=== PATIENT | female | born 1950 | race Caucasian/White ===

== ENCOUNTER 2017-09-01 12:01 | Inpatient (IN) ==
[2017-09-01 12:46] VITALS: BMI 32.8
[2017-09-01] MEDS ORDERED: INFLUENZA VAC High Dose 2017-18 (Fluzone HD*) (>=65yo) 0.5ml IM ONE (12:52)
[2017-09-01] MEDS ORDERED: PNEUMOCOCCAL 13 VACCINE 0.5ml INJECTION IM ONE (12:52)
[2017-09-01] MEDS ORDERED: Oxycodone *IR* 5 MG TABLET PO PRN (13:08)
[2017-09-01] MEDS: ACETAMINOPHEN 325 MG TABLET PO SCH ×3 (13:23→21:03)
[2017-09-01] MEDS ORDERED: ENOXAPARIN 40 MG/0.4 ML INJECTION SQ SCH (14:00)
[2017-09-01] MEDS: D5-1/2NS with KCL 20mEq 1,000 ML IV SCH ×2 (14:28→21:01)
--- NOTE | 2017-09-01 15:24 | History and Physical ---
CHIEF COMPLAINT Right hip pain. HPI The patient is a 67-year-old female who was brought to the clinic today as a new patient by her . She fell about two days on 08/30/2017. She is having difficulty walking and even standing up with the use of a walker and also a wheelchair at home. Her pain is getting worse. That's the reason why she came to the office today. X-ray done at the office did show a fracture of the head of the right femur. The patient had difficulty with moving around. We were able to do only one view of the x-ray. For this reason, I discussed the patient with Dr. Womack. He was willing to see the patient for surgical consultation. PAST MEDICAL HISTORY Kidney stone. PAST SURGICAL HISTORY None. FAMILY HISTORY Polycythemia. SOCIAL HISTORY The patient is with children. Current Occupation Status: Employed. Smoking Status: Nonsmoker. CURRENT MEDICATION None. ALLERGIES No known medication allergy. REVIEW OF SYSTEMS Denies any chest pain. No orthopnea. No PND. No leg swelling. Denies any hematochezia. No melena. Denies any TIA or CVA symptoms. PHYSICAL EXAMINATION GENERAL: Patient looks uncomfortable due to pain. NECK: Supple. LUNGS: Clear. CARDIOVASCULAR: Regular rate and rhythm. ABDOMEN: Soft. EXTREMITIES: Patient is tender on palpation of the right hip. NEURO EXAM: Grossly intact. No focal neurological deficit. CODE STATUS: Patient is Full Code. ASSESSMENT 1. X-ray did show closed posttraumatic subcapital right femoral neck fracture. This was mildly displaced as well. 2. Right hip pain due to #1 above. PLAN 1. Admit patient to [facility] under the care of Dr. Santana Davalos. 2. Consult to Dr. Womack. He is already aware of the consultation and he will see the patient later. 3. Do lab including CBC, CMP, UA. 4. The patient received Demerol 75 mg IM at the office. She will be started on pain medication and some IV fluid. 5. I will be checking out to the hospitalist at 4 p.m. today. I will return back on 09/05/2017 at 6:00 a.m. Until then, patient care will be managed by the hospitalists. Dr. Womack has been consulted. [facility]ENTER[facility]
[2017-09-01] MEDS ORDERED: PNEUMOCOCCAL VAC ADMIN CHARGE INJ ONE (17:35)
[2017-09-01] MEDS ORDERED: INFLUENZA VAC. INJ. ADMIN CHARGE INJ ONE (17:37)
[2017-09-02] MEDS: MORPHINE SULFATE 10 MG SYRINGE IV PRN ×2 (02:55→06:35)
[2017-09-02] MEDS: D5-1/2NS with KCL 20mEq 1,000 ML IV SCH ×2 (03:56→18:31)
--- NOTE | 2017-09-02 06:38 | Orthopedic Consult Note ---
Orthopedic Consultation HPI - Consultation Info Consult Date: 09/02/17 Attending Physician: Santana Davalos MD Consult Reason: fracture - History of Present Illness Miranda is a 67-year-old female who was taken to Dr Davalos's clinic on 09/01/17 after suffering a fall two days earlier on 08/30/2017. She fell from a standing height onto concrete and injured her right hip and right UE. She was having difficulty walking and the pain was worsening which is why she presented to his clinic for evaluation. X-ray done in the office showed a subcapital fracture of the right hip but no osseous injury to the upper extremity. Dr Womack was consulted and pt was sent to [facility] for inpatient placement with anticipation of surgery on 09/02/17. Review of Systems - Constitutional Constitutional: Absent: chills, fever(s), headache(s), night sweats, dizziness - EENT Ears, nose, mouth, throat: Absent: headaches, lightheadedness - Cardiovascular Cardiovascular: Absent: chest pain, palpitations, syncope - Respiratory Respiratory: Absent: cough, dyspnea - Gastrointestinal Gastrointestinal: Absent: change in bowel habits, diarrhea, vomiting - Genitourinary Genitourinary General: Absent: chills, fever(s) - Musculoskeletal Musculoskeletal: Present: as per HPI, other (Right elbow abrasion and some shoulder stiffness. ) - Integumentary/Breasts Integumentary: Absent: lesions, rash - Neurological Neurological: Absent: dizziness, paresthesias, tingling, paralysis/paresis - Psychiatric Psychiatric: Absent: depression - Hematologic/Lymphatic Hematologic/Lymphatic: Absent: easy bleeding, easy bruising - Allergic/Immunologic Allergic/Immunologic: Absent: hives [facility] Patient Stated Medical History Hx Kidney Stones Yes Clinic Medical History (Last Reviewed 09/02/17 @ 05:03 by Stephanie Clark RN) Kidney stones (Chronic Medical) Surgical History: appendix 10 years ago Family History: Family History (Last Updated 09/01/17 @ 10:36 by LIDIA Lopez) Mother Polycythemia - Social History Smoking status: Never smoker Medications Home Medications Medication Instructions Recorded Confirmed Type No known Home medications [No home 09/01/17 09/01/17 History meds] Allergies Allergy/AdvReac Type Severity Reaction Status Date / Time No Known Allergies Allergy Verified 09/01/17 13:18 Orthopedic Exam Vital signs: Temperature 98.1 F 09/01/17 23:00 Pulse Rate 82 09/01/17 23:00 Respiratory Rate 16 09/01/17 23:00 Blood Pressure 162/85 H 09/01/17 23:00 Pulse Oximetry 92 09/01/17 23:00 - Constitutional General Appearance: Present: alert, cooperative, no acute distress - Respiratory Exam Present: non-labored - Cardiovascular Exam Present: pedal pulses intact - Abdominal Exam Present: soft. Absent: tenderness, distended - Extremities Exam Present: pulses intact. Absent: no edema, calf tenderness - Hip Exam right Hip Exam: Present: tender over trochanter, alignment normal, painful PROM - Integumentary Exam Present: pink, warm, dry - Neurological Exam Present: intact to light touch, no deficits - Psychiatric Exam Present: alert, oriented, normal affect - Labs Result Diagrams: 09/01/17 13:15 09/01/17 13:15 Abnormal lab results 09/01/17 09/01/17 09/01/17 Range/Units 13:15 13:15 14:30 WBC 16.1 H (4.5-11.0) T/MM3 Neutrophils % (Manual) 95.0 H (33-66) % Lymphocytes % (Manual) 3.0 L (23-45) % Neutrophils # (Manual) 15.3 H (1.8-7.7) T/MM3 Lymphocytes # (Manual) 0.5 L (1-4.8) T/MM3 Creatinine 0.6 L (0.7-1.2) MG/DL BUN/Creatinine Ratio 27 H (6-26) RATIO Glucose 124 H (65-110) MG/DL Ur Specific [place] >=1.030 H (1.015-1.025) Urine Protein 1+ A (NEGATIVE) Urine Ketones 2+ A (NEGATIVE) Urine WBC 5-10 H (0-5) /HPF Urine Bacteria 1+ H (NEGATIVE) H & H 09/01/17 Range/Units 13:15 Hgb 13.3 (12-16) GM/DL Hct 40.6 (36-46) % Impression and Recommendation (1) Subcapital fracture of right hip Current visit: Yes Qualifiers: Encounter type: initial encounter Fracture type: closed Qualified Code(s) : S72.011A - Unspecified intracapsular fracture of right femur, initial encounter for closed fracture Status: Acute This is a displaced subcapital fracture of the right hip that is best treated with an endoprosthesis or total hip replacement. Considering her age, health and activity level, we will plan on doing a total hip arthroplasty. Dr Womack has discussed the surgical procedure, risk vs benefits, possible complications and expected post op course. All her questions were answered. The hip has been marked with anticipation of surgery later today. Hospital Course Summary Disclaimer: The visit summary below is not to be considered part of the above Progress Note.
--- NOTE | 2017-09-02 08:35 | XRay Report ---
Indication: Rt hip fx. Planning for surgery. PROCEDURE: XR pelvis w/ 1 view RT hip: Encounter: Initial Comparison: September 01, 2017 Findings: There is redemonstrated of the subcapital mildly displaced right femoral neck fracture. No additional acute fracture or dislocation seen. Mild degenerative change in the visualized lower lumbar spine. Impression: Closed posttraumatic subcapital right femoral neck fracture. .
[2017-09-02] MEDS ORDERED: METOPROLOL 5mg/5ml INJECTION IVP ONE (09:51)
[2017-09-02] MEDS ORDERED: ONDANSETRON 4 MG/2 ML INJECTION IVP PRN ×2 (09:53→16:34)
--- NOTE | 2017-09-02 09:54 | Progress Note ---
- Date 09/02/17 Objective Vital signs: Temperature 99.6 F 09/02/17 07:00 Pulse Rate 88 09/02/17 09:52 Respiratory Rate 22 09/02/17 09:52 Blood Pressure 197/91 H 09/02/17 09:52 Pulse Oximetry 90 09/02/17 09:52 Height/Weight/BMI: Height 1.6 m Weight 85 kg Body Mass Index 32.8 - Constitutional Present: no acute distress, well nourished, well developed - Routine HEENT Exam Head: Present: normocephalic Eye: Present: PERRL. Absent: conjunctival icterus, scleral injection ENT: Present: mucous membranes moist, oropharynx clear - Routine Respiratory Exam Present: CTA bilaterally - Routine Cardiovascular Exam Present: RRR, S1, S2 - Routine Abdominal Exam Present: soft, normoactive bowel sounds, non distended, non tender - Routine Extremities Exam Present: no edema, pulses intact, normal capillary refill. Absent: calf tenderness - Routine Skin Exam Present: intact, dry, warm - Routine Neurological Exam Present: alert, oriented X3, normal speech - Routine Psychiatric Exam Present: normal affect, normal thought process, cooperative Results - Labs CBC & Chem 7: 09/01/17 13:15 09/01/17 13:15 Assessment and Plan - Physician Narrative Narrative: Date: 09/02/17 Time: 0953 Hospital Course Summary Disclaimer: The visit summary below is not to be considered part of the above Progress Note.
[2017-09-02] MEDS ORDERED: TRANEXAMIC ACID 1,000 MG in NS 100 ML IV ONE (10:00)
[2017-09-02] MEDS ORDERED: METOCLOPRAMIDE 10mg/2ml INJECTION IVP ONE (10:00)
[2017-09-02] MEDS ORDERED: ACETAMINOPHEN 500 MG TABLET PO ONE (10:00)
[2017-09-02] MEDS ORDERED: EPINEPHrine PF 0.25 MG, BUPIVACAINE 0.25% PF 30 ML, KETOROLAC INJ 60 MG in NS 30 ML OPSITE ONE (10:00)
[2017-09-02] MEDS ORDERED: FAMOTIDINE PB 20 MG/50 ML BAG IV ONE (10:00)
[2017-09-02] MEDS ORDERED: ONDANSETRON 4 MG/2 ML INJECTION IVP ONE (10:00)
[2017-09-02] MEDS ORDERED: DEXAMETHASONE 4 MG/ML INJECTION IVP ONE (10:00)
[2017-09-02] MEDS: LR 1,000 ML IV SCH ×4 (10:05→18:16)
[2017-09-02] MEDS: ACETAMINOPHEN 325 MG TABLET PO SCH ×4 (10:06→21:28)
[2017-09-02] MEDS: NOZIN NASAL SWAB NAS SCH ×4 (10:08→21:24)
--- NOTE | 2017-09-02 11:06 | Anesthesia Preoperative Report ---
Anesthesia Preoperative Record - Date and Time Date: 09/02/17 Preoperative Diagnosis: right femoral head fracture Proposed Procedure: Right total hip NPO Since Date: 09/02/17 NPO Since Time: 00:00 Allergies/Adverse Reactions: Allergies Allergy/AdvReac Type Severity Reaction Status Date / Time No Known Allergies Allergy Verified 09/01/17 13:18 - Vital Signs Vital Signs: Temperature 99.6 F 09/02/17 07:00 Pulse Rate 80 09/02/17 10:35 Respiratory Rate 18 09/02/17 10:15 Blood Pressure 203/91 H 09/02/17 10:35 Pulse Oximetry 95 09/02/17 10:15 Height and Weight: Height 1.6 m Weight 85 kg Body Mass Index 32.8 - Medications Inpatient Medications: Current Medications Acetaminophen (Tylenol) 650 mg PO QID [facility] Last Admin: 09/02/17 10:06 Dose: Not Given Cefazolin Sodium (Kefzol) 2 g IVP PREOP ONE Stop: 09/02/17 12:01 Potassium Chloride/Dextrose/Sod Cl (D5-1/2ns With Kcl 20meq) 1,000 mls @ 75 mls /hr IV .[id number] [facility] Last Infusion: 09/02/17 09:40 Dose: 0 mls/hr Lactated Ringer's (Lactated Ringers) 1,000 mls @ 50 mls/hr IV .Q20H [facility] Last Admin: 09/02/17 10:05 Dose: 50 mls/hr Magnesium Hydroxide (Mom) 30 ml PO DAILY PRN PRN Reason: Constipation Morphine Sulfate (Morphine Sulfate Inj) 2 - 5 mg IV Q2H PRN PRN Reason: Pain Last Admin: 09/02/17 06:35 Dose: 2 mg Ondansetron HCl (Zofran) 4 mg IVP Q6H PRN PRN Reason: Nausea &/or vomiting Oxycodone HCl (Roxicodone *Ir*) 5 - 15 mg PO Q3H PRN PRN Reason: Pain Last Admin: 09/01/17 13:23 Dose: 15 mg Polyethylene Glycol (Miralax) 17 gm PO DAILY [facility] Senna/Docusate Sodium (Senna Plus Tablet) 1 tab PO BID [facility] Home Medications: Home Medications Medication Instructions Recorded Confirmed Type No known Home medications [No home 09/01/17 09/01/17 History meds] Is Patient on Beta Zachary?: No - Medical History Respiratory: DENIES: Sleep Apnea - Surgical History GI Surgery/Treatments: Reports: Appendectomy Reproductive Surgery/Treatment: Reports: Hysterectomy Anesthesia Reactions: None Hx Family Anesthesia Reaction: No History of Motion Sickness: No - Social History Smoking Status: Never smoker Hx Chewing Tobacco Use: No Second Hand Exposure: No Substance Use Type: does not use Alcohol Intake Frequency: a few times a month - Pertinent Findings Laboratory: CBC and BMP 09/01/17 13:15 09/01/17 13:15 BMP 09/01/17 13:15 Sodium 142 Potassium 3.9 Chloride 107 Carbon Dioxide 25 BUN 16.0 Creatinine 0.6 L Glucose 124 H Calcium 9.1 Liver Function 09/01/17 Range/Units 13:15 Total Bilirubin 1.00 (0.20-1.30) MG/DL AST 25 (14-36) U/L ALT 41 (9-52) U/L Alkaline Phosphatase 82 (38-126) U/L Albumin 4.1 (3.5-5.0) G/DL Urine 09/01/17 Range/Units 14:30 Urine Color Yellow (YELLOW) Urine Clarity Clear Urine pH 6.0 (5.0-8.0) Ur Specific [place] >=1.030 H (1.015-1.025) Urine Protein 1+ A (NEGATIVE) Urine Glucose (UA) Negative (NEGATIVE) EKG: Sinus Rhythm - Physical Exam Respiratory Exam: Present: lungs clear Cardiovascular Exam: Present: regular rate and rhythm - Airway Assessment Mallampati Score: II TMD: 3 Fingerbreadths Neck Extension: fair Overall Assessment: no airway concerns - ASA ASA Score: 2 - Plan Anesthesia: Neuroaxial Regional/Trunk Block: Spinal - Discussion Discussion: Discussed risks/options/alternatives of anesthesia and questions answered. Patient consents. Nursing pain assessment noted. Present for Discussion: spouse Attestation Statement: Prior to the delivery of any anesthetic medication, I examined the patient, developed the plan, obtained the patient's consent and discussed the risk and benefits of the procedure with the patient/guardian.
--- NOTE | 2017-09-02 11:20 | Progress Note ---
- Date 09/02/17 Subjective: Miranda has no new complaints. Her hip pain is minimal, rating it 1/10. She denies chest pain or dyspnea. No nausea. She is NPO for surgery today. Medical history reviewed with her -- she denies HTN, DM, heart disease, lung disease. She has never been on bp medication though reports hx of white coat HTN. Objective Vital signs: Temperature 99.6 F 09/02/17 07:00 Pulse Rate 80 09/02/17 10:35 Respiratory Rate 18 09/02/17 10:15 Blood Pressure 203/91 H 09/02/17 10:35 Pulse Oximetry 95 09/02/17 10:15 Height/Weight/BMI: Height 1.6 m Weight 85 kg Body Mass Index 32.8 - Constitutional Present: no acute distress, well nourished, well developed - Routine HEENT Exam Head: Present: normocephalic Eye: Present: PERRL. Absent: conjunctival icterus, scleral injection ENT: Present: mucous membranes moist, oropharynx clear - Routine Respiratory Exam Present: CTA bilaterally - Routine Cardiovascular Exam Present: RRR, S1, S2 - Routine Abdominal Exam Present: soft, normoactive bowel sounds, non distended, non tender - Routine Extremities Exam Present: no edema, pulses intact - Routine Skin Exam Present: intact, dry, warm - Routine Neurological Exam Present: alert, oriented X3 - Routine Psychiatric Exam Present: normal affect, normal thought process, cooperative Results - Labs CBC & Chem 7: 09/01/17 13:15 09/01/17 13:15 Assessment and Plan (1) Subcapital fracture of right hip Current visit: Yes Status: Acute Assessment and Plan: IMPRESSION Subcapital right femoral neck fracture Leukocytosis, POA (suspect stress reaction) Elevated BP PLAN Hospitalist team is covering for Dr. Davalos. Low-dose metoprolol was given this morning for elevated bp without noted improvement -- may need to initiate antiHTN medication Surgery planned today. High risk medication in use (IV Morphine) Start bowel regimen; consult PT/OT. LANI MARCELO. DVT Prophylaxis: Lovenox Resuscitation Status: Full Code - Physician Narrative Physician: Shannen Townsend MD Narrative: Date: 09/02/17 Time: 1830 I have independently evaluated and examined this patient. I reviewed the chart, the patient's history, and the PHARMACY SALES REPRESENTATIVE/PA's documented findings as above. We discussed and formulated the assessment and plan as above with additions as below: Mrs. Walsh is doing well postoperatively although she can't really tell where her legs are due to spinal anesthesia which is not fully reversed yet. She denies dyspnea or nausea and has no pain at present. NAD, alert Respirations nonlabored, good airflow, breath sounds clear Regular rhythm Identifies palpation of both feet and able to wiggle toes bilaterally. Nursing reports blood pressure is starting to climb again-responded to IV metoprolol in the operating room When necessary metoprolol ordered, may require daily medication if blood pressures persistently elevated. s/p R MAGDA for femoral neck fracture--preoperative films reviewed by myself. Hospital Course Summary Disclaimer: The visit summary below is not to be considered part of the above Progress Note. Hospital Course: 09/01/17 - Admitted for right hip fracture. 09/02/17 - Hospitalist team is covering for Dr. Davalos. Surgery planned today. Low-dose metoprolol was given this morning for elevated bp without noted improvement -- may need to initiate antiHTN medication Start bowel regimen; consult PT/OT. LANI MARCELO.
[2017-09-02] MEDS ORDERED: CEFAZOLIN 1 G INJECTION IVP ONE (12:00)
[2017-09-02] MEDS ORDERED: MIDAZOLAM 2mg/2ml INJECTION ONE (14:28)
[2017-09-02] MEDS ORDERED: PROPOFOL 40 ML ONE (14:30)
[2017-09-02] MEDS ORDERED: VANCOMYCIN 1,000 MG INJECTION ONE (14:34)
[2017-09-02] MEDS ORDERED: FentaNYL 100 MCG/2 ML INJECTION ONE (14:52)
[2017-09-02] MEDS ORDERED: EPHEDRINE 50mg/ml INJECTION ONE (15:27)
[2017-09-02] MEDS ORDERED: VANCOMYCIN 1,000 MG INJECTION IAR ONE (15:36)
[2017-09-02] MEDS ORDERED: FentaNYL 100 MCG/2 ML INJECTION IVP PRN (16:34)
[2017-09-02] MEDS ORDERED: PROPOFOL 20 ML ONE (16:36)
--- NOTE | 2017-09-02 17:01 | Operative Note ---
- Procedure Preoperative Diagnosis: Displaced right femoral neck fracture Postoperative Diagnosis: Same as preoperative diagnosis. Surgeon: Travis Womack MD Supervisor Backfilling: Deandre Barcenas Complications: None. Anesthesia: Spinal. Estimated Blood Loss: See Anesthesia Record. Fluids: Please see Anesthesia Record. Description of Procedure: Mrs. Walsh and her right hip were identified and marked in the preoperative holding area. She was brought back to the operating suite and spinal anesthetic was administered. She was then placed in a lateral decubitus position with her right hip up. The right lower extremity was prepped and draped in my normal sterile fashion. Timeout was performed. A posterior approach was utilized. A 15 cm incision was made sharply. Sharp dissection was carried down to the muscle fascia was then split in line with the skin incision. A retractor was placed under the abductors and the piriformis tendon was identified and was tagged and detached. The remaining external rotators were detached and a capsulotomy was performed. This fracture hematoma was evacuated. I freshened up her femoral neck just below the fracture line and then the head and fractured neck was removed. The acetabulum was exposed and labrum removed. She had mild arthritic changes. We sequentially reamed from 47-51 trial with a 51 cup. This looked good after thorough irrigation a final 52 Trident cup was placed in 40 of abduction and 20 of version. A liner was placed. The proximal femur was then prepared with a cookie cutter followed by broaching to a size 4. We trialed with a -2.5 head with 132 neck. This gave excellent stability with good shuck sign. She felt good at the knees. After thorough irrigation a final Accolade 2 size 4 with a 132 neck was placed. We trialed again with a -2.5 head and this was good so final ceramic - 2.5 36 mm head was placed. Again this gave excellent stability. Joint cocktail was injected throughout the soft tissues. Betadine solution was used multiple times that the case for irrigation. Capsulotomy was prepared with Ethibond the piriformis was also repaired with Ethibond. 1 g vancomycin powder was placed into the joint then. The muscle fascia was repaired with #1 Vicryl. I then left my parking assistant to close the subcutaneous tissue with 2-0 Vicryl followed by running 4-0 Monocryl in the skin followed by sterile dressing. She will then be placed back into a supine position and taken to the recovery room in the care of anesthesia
[2017-09-02] MEDS ORDERED: NOZIN NASAL SWAB NAS ONE (17:42)
[2017-09-02] MEDS ORDERED: DiphenhydrAMINE 25 MG CAPSULE PO PRN (17:42)
[2017-09-02] MEDS ORDERED: DiphenhydrAMINE 50 MG/ML INJECTION IVP PRN (17:42)
[2017-09-02] MEDS ORDERED: METOPROLOL 5mg/5ml INJECTION IVP PRN (18:34)
[2017-09-02] MEDS: NAPROXEN 220 MG TABLET PO SCH (21:23)
[2017-09-02] MEDS: SENNA + DOCUSATE TABLET PO SCH (21:23)
[2017-09-02] MEDS: DOCUSATE SODIUM 100 MG CAPSULE PO SCH (21:23)
[2017-09-02] MEDS: ENOXAPARIN 40 MG/0.4 ML INJECTION SQ SCH (21:24)
[2017-09-02] MEDS: CEFAZOLIN 2 G in NS 50 ML IV SCH (22:31)
[2017-09-03] MEDS: CEFAZOLIN 2 G in NS 50 ML IV SCH (06:00)
[2017-09-03] MEDS: NOZIN NASAL SWAB NAS SCH ×4 (06:00→22:29)
[2017-09-03] MEDS: ACETAMINOPHEN 325 MG TABLET PO SCH ×4 (09:49→20:00)
[2017-09-03] MEDS: DOCUSATE SODIUM 100 MG CAPSULE PO SCH ×2 (09:50→20:01)
[2017-09-03] MEDS: SENNA + DOCUSATE TABLET PO SCH ×2 (09:50→20:01)
[2017-09-03] MEDS: POLYETHYL GLYCOL 3350 17gm PACKET PO SCH (09:50)
[2017-09-03] MEDS: NAPROXEN 220 MG TABLET PO SCH ×2 (09:50→20:00)
--- NOTE | 2017-09-03 12:51 | Orthopedic Progress Note ---
Date: Date: 09/03/17 Time: 1249 Subjective/Severity of Illness: Mrs. Walsh is postop day #1 right total hip arthroplasty for femoral neck fracture. She is doing very well and has worked with therapy this morning she denies any significant pain. Orthopedic Objective Vital signs: Temperature 96.3 F L 09/03/17 11:34 Pulse Rate 82 09/03/17 11:34 Respiratory Rate 16 09/03/17 11:34 Blood Pressure 154/71 H 09/03/17 11:34 Pulse Oximetry 93 09/03/17 11:34 Height and Weight: Height 5 ft 3 in Weight 84.8 kg Body Mass Index 32.8 - Constitutional General Appearance: Present: alert, cooperative, no acute distress - Respiratory Exam Present: non-labored - Cardiovascular Exam Capillary Refill: < 2-3 Seconds - Abdominal Exam Present: tenderness - Extremities Exam Present: no edema, pulses intact - Hip Exam right Comments: Dressing is clean dry and intact - Integumentary Exam Present: pink, warm, dry - Neurological Exam Present: intact to light touch, no deficits - Labs Result Diagrams: 09/03/17 03:55 09/03/17 03:56 Abnormal lab results 09/03/17 09/03/17 Range/Units 03:55 03:56 WBC 11.7 H (4.5-11.0) T/MM3 Hgb 11.8 L D (12-16) GM/DL Neutrophils % (Manual) 90.0 H (33-66) % Lymphocytes % (Manual) 5.0 L (23-45) % Neutrophils # (Manual) 10.5 H (1.8-7.7) T/MM3 Lymphocytes # (Manual) 0.6 L (1-4.8) T/MM3 Creatinine 0.6 L (0.7-1.2) MG/DL Glucose 152 H (65-110) MG/DL H & H 09/01/17 09/03/17 Range/Units 13:15 03:55 Hgb 13.3 11.8 L D (12-16) GM/DL Hct 40.6 36.3 (36-46) % Orthopedic Assessment and Plan (1) Subcapital fracture of right hip Status: Acute Qualifiers: Encounter type: initial encounter Fracture type: closed Qualified Code(s) : S72.011A - Unspecified intracapsular fracture of right femur, initial encounter for closed fracture Assessment and Plan: As long as she passes physical therapy today and is able to open downstairs I feel that she could be discharged home on oral pain medication and aspirin for DVT prophylaxis. I reviewed hip precautions with her today. Hospital Course Summary Disclaimer: The visit summary below is not to be considered part of the above Progress Note. Hospital Course: 09/01/17 - Admitted for right hip fracture. 09/02/17 - Hospitalist team is covering for Dr. Davalos. Surgery planned today. Low-dose metoprolol was given this morning for elevated bp without noted improvement -- may need to initiate antiHTN medication Start bowel regimen; consult PT/OT. LANI MARCELO.
--- NOTE | 2017-09-03 14:47 | Progress Note ---
- Date 09/03/17 Subjective: F/U: S/P total right hip replacement - 09/01/[address] Womack - POD #2. Miranda is seen while ambulating in her room with her walker and no assist. She appears very steady on her feet and reports that she is feeling great. She denies any complaints or concerns including no chest pain, shortness of breath, abdominal pain, nausea, vomiting or diarrhea. Immediately prior to exam, her Chacon catheter was successfully removed at her request. She reports that her appetite is good but she has not had a bowel movement since admission. She has been working with therapy is already feels that her strength and functional ability are improving. On clinical cardiac exam, heart rate is noted to be irregular. She admits to a past history of irregular heart rate and states that she wore a Halter monitor about 3 years ago for 24 hours but it didn't "catch anything". No lightheadedness on exam but admits to palpitations when specifically asked and states that she does have lightheadedness occasionally with standing. She continues to struggle with elevated blood pressure with systolic pressure 140's-150's. Metoprolol 2.5mg Q6H IV PRN was initiated during this acute hospitalization with some improvement. She believes her hypertension is related to "white coat syndrome" when seeing clinicians and states that she has never seen a heel buffer before. Objective Vital signs: Temperature 96.3 F L 09/03/17 11:34 Pulse Rate 82 09/03/17 11:34 Respiratory Rate 16 09/03/17 11:34 Blood Pressure 154/71 H 09/03/17 11:34 Pulse Oximetry 93 09/03/17 11:34 Height/Weight/BMI: Height 5 ft 3 in Weight 186 lb 15.232 oz Body Mass Index 32.8 Comments: Patient is seen while ambulating in her room with her walker and no additional assistance. She appears steady on her feet and denies any pain. - Constitutional Present: no acute distress, well nourished, well developed, obese, cooperative Comments: Very pleasant on exam. - Routine HEENT Exam Head: Present: normocephalic, atraumatic Eye: Present: PERRL. Absent: conjunctival icterus ENT: Present: mucous membranes moist - Routine Respiratory Exam Present: CTA bilaterally. Absent: rales, respiratory distress, rhonchi, stridor , wheezes, crackles - Routine Cardiovascular Exam Present: irregularly irregular - Routine Abdominal Exam Present: soft, normoactive bowel sounds, non distended, non tender - Routine Exam Comments: Chacon catheter removed immediately prior to exam. - Routine Extremities Exam Present: no edema, non tender, full ROM, pulses intact Comments: Ambulating easily with walker and no additional assistance. - Routine Back/Spine/Pelvis Exam Back/Spine: Present: full ROM. Absent: vertebral tenderness - Routine Musculoskeletal Exam Musculoskeletal: Present: moving extremities well - Routine Skin Exam Present: intact, dry, warm. Absent: jaundice Comments: afebrile. - Routine Neurological Exam Present: alert, oriented X3, CN II-XII intact, moving all extremities, hearing grossly intact, normal speech. Absent: facial asymmetry - Routine Lymphatic Exam Lymphatic: Absent: lymphedema - Routine Psychiatric Exam Present: normal affect, cooperative, good insight, good judgment Results - Labs CBC & Chem 7: 09/03/17 03:55 09/03/17 03:56 Assessment and Plan (1) Status post total hip replacement, right Problem details: performed 09/01/[address] Womack. Current visit: Yes Status: Acute (2) Subcapital fracture of right hip Current visit: Yes Status: Acute Assessment and Plan: IMPRESSION S/P total right hip replacement - Dr. Womack on 09/01/17. ABLA. Subcapital right femoral neck fracture secondary to mechanical fall. Leukocytosis, POA (suspect stress reaction)- improving. Hypertension. Hyperglycemia. PLAN - 09/03/17 (POD #2) Hospitalist team is covering for Dr. Davalos. Patient denies any pain and is progressing well clinically. Continue pain control per Dr. Womack. Continue to encourage therapies to improve functional abilities and strength. Blood pressure remains elevated with systolic pressures in 140-150's. Clinical exam reveals irregularly irregular heart rate and rhythm. Patient admits to history of arrhythmia with palpitations. 24 hours halter monitor worn 3 years ago which "didn't capture anything". No prior heel buffer. Will obtain EKG now and place patient on telemetry for close cardiac monitoring. Will obtain TSH now for further evaluation. Continue metoprolol 2.5mg Q6H IV PRN hypertension/tachycardia. May consider initiation of home antihypertensive upon discharge. Continue bowel motivation given patient's use of opioid pain control. Chacon catheter removed today. Monitor closely for signs of urinary retention and bladder scan as indicated. Nursing reports concern of decreased urinary output following discontinuation of IVF yesterday. Continue to monitor I&O closely and encourage oral intake. Will recheck CBC and BMP in AM to monitor blood counts, electrolytes and renal function. DVT Prophylaxis: SCD's, Lovenox Resuscitation Status: Full Code - Time spent with patient Time with patient PN: 35 minutes - Physician Narrative Physician: Deepali Hensley MD Narrative: Date: 09/03/17 Time 3:[address] Hensley seeing the patient for Dr. Davalos The patient was seen this afternoon in her room. She states she's feeling great. She denies any chest pains or palpitations. She denies any lightheadedness. She states she did well walking. PT is recommended home with assist. On exam she is alert and oriented 3. Chest is clear to auscultation. Cardiovascular reveals a regular rate and rhythm. Telemetry shows sinus rhythm currently. Abdomen is soft and nontender. Extremities are free of edema. Impression and plan Right femur fracture, intracapsular-status post total hip replacement-doing well. Pain controlled with oral pain medication. Regarding ectopy heard earlier today on cardiac exam, will monitor overnight on telemetry. Repeat lab tomorrow. Check TSH tomorrow. If still doing well tomorrow, and urinating well without Chacon catheter, will consider dismissal to home. Dr. Womack's note reviewed. Hospital Course Summary Disclaimer: The visit summary below is not to be considered part of the above Progress Note. Hospital Course: 09/01/17 - Admitted for right hip fracture. 09/02/17 - Hospitalist team is covering for Dr. Davalos. Surgery planned today. Low-dose metoprolol was given this morning for elevated bp without noted improvement -- may need to initiate antiHTN medication Start bowel regimen; consult PT/OT. LANI chacon FOZIA. PLAN - 09/03/17 (POD #2) Hospitalist team is covering for Dr. Davalos. Patient denies any pain and is progressing well clinically. Continue pain control per Dr. Womack. Continue to encourage therapies to improve functional abilities and strength. Blood pressure remains elevated with systolic pressures in 140-150's. Clinical exam reveals irregularly irregular heart rate and rhythm. Patient admits to history of arrhythmia with palpitations. 24 hours halter monitor worn 3 years ago which "didn't capture anything". No prior heel buffer. Will obtain EKG now and place patient on telemetry for close cardiac monitoring. Will obtain TSH now for further evaluation. Continue metoprolol 2.5mg Q6H IV PRN hypertension/tachycardia. May consider initiation of home antihypertensive upon discharge. Continue bowel motivation given patient's use of opioid pain control. Chacon catheter removed today. Monitor closely for signs of urinary retention and bladder scan as indicated. Nursing reports concern of decreased urinary output following discontinuation of IVF yesterday. Continue to monitor I&O closely and encourage oral intake. Will recheck CBC and BMP in AM to monitor blood counts, electrolytes and renal function.
[2017-09-03] MEDS: ENOXAPARIN 40 MG/0.4 ML INJECTION SQ SCH (19:59)
[2017-09-04] MEDS: NOZIN NASAL SWAB NAS SCH ×4 (05:50→21:29)
--- NOTE | 2017-09-04 09:06 | Orthopedic Progress Note ---
Date: Date: 09/04/17 Time: 904 Subjective/Severity of Illness: Doing well, no new complaints. Orthopedic Objective Vital signs: Temperature 96.6 F L 09/04/17 07:00 Pulse Rate 72 09/04/17 07:00 Respiratory Rate 16 09/04/17 07:00 Blood Pressure 173/91 H 09/04/17 07:00 Pulse Oximetry 97 09/04/17 07:00 Height and Weight: Height 5 ft 3 in Weight 84.8 kg Body Mass Index 32.8 - Constitutional General Appearance: Present: alert, cooperative, no acute distress - Respiratory Exam Present: non-labored - Cardiovascular Exam Capillary Refill: < 2-3 Seconds - Abdominal Exam Present: tenderness - Extremities Exam Present: no edema, non tender, full ROM, pulses intact - Hip Exam right Hip Exam: Present: tender over trochanter, alignment normal, painful PROM - Integumentary Exam Present: pink, warm, dry - Lymphatic Lymphatic: Absent: lymphedema - Neurological Exam Present: intact to light touch, no deficits - Labs Result Diagrams: 09/04/17 04:19 09/04/17 04:19 Abnormal lab results 09/03/17 09/04/17 09/04/17 Range/Units 18:25 04:19 04:19 Hgb 11.4 L (12-16) GM/DL Hct 35.6 L (36-46) % Neut % (Auto) 67.9 H (33-66) % Lymph % (Auto) 21.5 L (23-45) % Creatinine 0.6 L (0.7-1.2) MG/DL BUN/Creatinine Ratio 28 H (6-26) RATIO Urine Occult Blood 3+ A (NEGATIVE) Ur Leukocyte Esterase 1+ A (NEGATIVE) Urine RBC 30-50 H (0-3) /HPF Urine WBC 10-20 H (0-5) /HPF Urine Bacteria Trace H (NEGATIVE) H & H 09/01/17 09/03/17 09/04/17 Range/Units 13:15 03:55 04:19 Hgb 13.3 11.8 L D 11.4 L (12-16) GM/DL Hct 40.6 36.3 35.6 L (36-46) % Orthopedic Assessment and Plan (1) Subcapital fracture of right hip Status: Acute Qualifiers: Encounter type: initial encounter Fracture type: closed Qualified Code(s) : S72.011A - Unspecified intracapsular fracture of right femur, initial encounter for closed fracture Assessment and Plan: She did not go home yesterday so they could monitor her heart. She is free to be discharged from my standpoint. Hospital Course Summary Disclaimer: The visit summary below is not to be considered part of the above Progress Note. Hospital Course: 09/01/17 - Admitted for right hip fracture. 09/02/17 - Hospitalist team is covering for Dr. Davalos. Surgery planned today. Low-dose metoprolol was given this morning for elevated bp without noted improvement -- may need to initiate antiHTN medication Start bowel regimen; consult PT/OT. LANI chacon FOZIA. PLAN - 09/03/17 (POD #2) Hospitalist team is covering for Dr. Davalos. Patient denies any pain and is progressing well clinically. Continue pain control per Dr. Womack. Continue to encourage therapies to improve functional abilities and strength. Blood pressure remains elevated with systolic pressures in 140-150's. Clinical exam reveals irregularly irregular heart rate and rhythm. Patient admits to history of arrhythmia with palpitations. 24 hours halter monitor worn 3 years ago which "didn't capture anything". 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 Will obtain EKG now and place patient on telemetry for close cardiac monitoring. Will obtain TSH now for further evaluation. Continue metoprolol 2.5mg Q6H IV PRN hypertension/tachycardia. May consider initiation of home antihypertensive upon discharge. Continue bowel motivation given patient's use of opioid pain control. Chacon catheter removed today. Monitor closely for signs of urinary retention and bladder scan as indicated. Nursing reports concern of decreased urinary output following discontinuation of IVF yesterday. Continue to monitor I&O closely and encourage oral intake. Will recheck CBC and BMP in AM to monitor blood counts, electrolytes and renal function.
[2017-09-04] MEDS: NAPROXEN 220 MG TABLET PO SCH ×2 (09:49→20:21)
[2017-09-04] MEDS: POLYETHYL GLYCOL 3350 17gm PACKET PO SCH (09:49)
[2017-09-04] MEDS: ACETAMINOPHEN 325 MG TABLET PO SCH ×4 (09:50→20:21)
[2017-09-04] MEDS: LISINOPRIL 10 MG TABLET PO SCH (09:50)
[2017-09-04] MEDS: DOCUSATE SODIUM 100 MG CAPSULE PO SCH ×2 (09:50→20:22)
[2017-09-04] MEDS: SENNA + DOCUSATE TABLET PO SCH ×2 (09:50→20:22)
--- NOTE | 2017-09-04 10:12 | XRay Report ---
Indication: postoperative image PROCEDURE: XR pelvis w/ 1 view RT hip: Encounter: Initial Comparison: Pelvis radiographs dated September 02, 2017 at 0734 Findings: Postoperative changes of right total hip replacement are seen. There is expected postoperative subcutaneous gas. No evidence of hardware failure or acute fracture. No retained radiopaque surgical instruments or sponges seen. Impression: New right total hip prosthesis without evidence of immediate complication. .
--- NOTE | 2017-09-04 12:12 | Progress Note ---
- Date 09/04/17 Subjective: Dr. Hensley covering for Dr Lewis The patient was seen this morning in her room accompanied by her . She has had elevated blood pressure since admission, occasionally requiring IV metoprolol. Morning blood pressure was 173/91 and I did start her on lisinopril 10 mg daily. One hour after lisinopril blood pressure was 190/96. We will recheck blood pressure again now. The patient denies any chest pain or shortness of breath. She did state that she had some occasional palpitations last night, usually feeling like a skipped beat and only lasting a couple of seconds. On review of telemetry overnight, she did not have any noted arrhythmias. She states her hip pain is tolerable. She is eating and drinking okay. She's not had a bowel movement yet. She is urinating okay after Chacon catheter was removed. Objective Vital signs: Temperature 97.8 F 09/04/17 11:00 Pulse Rate 74 09/04/17 11:00 Respiratory Rate 18 09/04/17 11:00 Blood Pressure 190/96 H 09/04/17 11:00 Pulse Oximetry 95 09/04/17 11:00 Height/Weight/BMI: Height 1.6 m Weight 84.8 kg Body Mass Index 32.8 Comments: GEN-alert, oriented, no acute distress HEENT-sclera anicteric, oropharynx is moist NECK-supple CV-regular rate and rhythm, no ectopy, no murmurs CHEST-clear to auscultation ABD-soft, nontender with positive bowel sounds -no Chacon EXT-no edema NEURO-no focal deficits SKIN-warm and dry and without rashes Results - Labs CBC & Chem 7: 09/04/17 04:19 09/04/17 04:19 Labs: TSH was normal-0.62 Magnesium is normal at 1.9 Assessment and Plan (1) Status post total hip replacement, right Problem details: performed 09/01/[address] Womack. Current visit: Yes Status: Acute (2) Subcapital fracture of right hip Current visit: Yes Status: Acute Assessment and Plan: IMPRESSION S/P total right hip replacement - Dr. Womack on 09/01/17. ABLA. Subcapital right femoral neck fracture secondary to mechanical fall. Leukocytosis, POA (suspect stress reaction)- improving. Hypertension. Hyperglycemia on a.m. lab-improved. PLAN - 09/03/17 (POD #2) Hospitalist team is covering for Dr. Davalos. Patient denies any pain and is progressing well clinically. Continue pain control per Dr. Womack. Continue to encourage therapies to improve functional abilities and strength. Blood pressure in the 170s to 190s today. Lisinopril started today. We'll have her stay in the hospital overnight to make sure blood pressure is better controlled prior to discharge. She may need additional medication beyond her initial dose of lisinopril. She did have a short lasting episode of tachy-arrhythmia yesterday afternoon. Telemetry since then has been normal. Continue on telemetry. Possible discharge tomorrow if blood pressure is better controlled. DVT Prophylaxis: Lovenox - Physician Narrative Narrative: Date: 09/04/17 Time: 1208 Hospital Course Summary Disclaimer: The visit summary below is not to be considered part of the above Progress Note. Hospital Course: 09/01/17 - Admitted for right hip fracture. 09/02/17 - Hospitalist team is covering for Dr. Davalos. Surgery planned today. Low-dose metoprolol was given this morning for elevated bp without noted improvement -- may need to initiate antiHTN medication Start bowel regimen; consult PT/OT. LANI chacon FOZIA. PLAN - 09/03/17 (POD #2) Hospitalist team is covering for Dr. Davalos. Patient denies any pain and is progressing well clinically. Continue pain control per Dr. Womack. Continue to encourage therapies to improve functional abilities and strength. Blood pressure remains elevated with systolic pressures in 140-150's. Clinical exam reveals irregularly irregular heart rate and rhythm. Patient admits to history of arrhythmia with palpitations. 24 hours halter monitor worn 3 years ago which "didn't capture anything". 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 Will obtain EKG now and place patient on telemetry for close cardiac monitoring. Will obtain TSH now for further evaluation. Continue metoprolol 2.5mg Q6H IV PRN hypertension/tachycardia. May consider initiation of home antihypertensive upon discharge. Continue bowel motivation given patient's use of opioid pain control. Chacon catheter removed today. Monitor closely for signs of urinary retention and bladder scan as indicated. Nursing reports concern of decreased urinary output following discontinuation of IVF yesterday. Continue to monitor I&O closely and encourage oral intake. Will recheck CBC and BMP in AM to monitor blood counts, electrolytes and renal function.
[2017-09-04] MEDS ORDERED: BISACODYL 10 MG SUPPOSITORY RECTALLY SCH (20:00)
[2017-09-04] MEDS: ENOXAPARIN 40 MG/0.4 ML INJECTION SQ SCH (20:22)
[2017-09-05] MEDS: NOZIN NASAL SWAB NAS SCH (06:47)
--- NOTE | 2017-09-05 09:40 | Orthopedic Progress Note ---
Date: Date: 09/05/17 Time: 935 Subjective/Severity of Illness: Doing great. Hopeful to go home today. Pain is controlled. No concerns. Orthopedic Objective PO Vital signs: Temperature 96.5 F L 09/05/17 07:49 Pulse Rate 78 09/05/17 07:49 Respiratory Rate 18 09/05/17 07:49 Blood Pressure 156/75 H 09/05/17 07:49 Pulse Oximetry 87 L 09/05/17 07:49 Height and Weight: Height 5 ft 3 in Weight 186 lb 15.232 oz Body Mass Index 32.8 - Constitutional General Appearance: Present: alert, cooperative, no acute distress - Respiratory Exam Present: non-labored - Cardiovascular Exam Present: pedal pulses intact - Abdominal Exam Present: tenderness - Extremities Exam Extremities: Present: pulses intact - Surgical Site Incision: Mepilex dressing intact, no drainage - Integumentary Exam Present: pink, warm, dry - Neurological Exam Present: intact to light touch, no deficits - Psychiatric Exam Present: alert, normal affect - Labs Result Diagrams: 09/04/17 04:19 09/04/17 04:19 H & H 09/01/17 09/03/17 09/04/17 Range/Units 13:15 03:55 04:19 Hgb 13.3 11.8 L D 11.4 L (12-16) GM/DL Hct 40.6 36.3 35.6 L (36-46) % Orthopedic Assessment and Plan (1) Subcapital fracture of right hip Status: Acute Qualifiers: Encounter type: initial encounter Fracture type: closed Qualified Code(s) : S72.011A - Unspecified intracapsular fracture of right femur, initial encounter for closed fracture Assessment and Plan: She is free to be discharged from my standpoint. Would switch her to Aspirin 81mg BID in place of Lovenox at discharge. F/U with me 09/26/17 at 2PM. - Anticoagulation Therapy Anticoagulation: ASA 81 mg PO BID x6 weeks Hospital Course Summary Disclaimer: The visit summary below is not to be considered part of the above Progress Note. Hospital Course: 09/01/17 - Admitted for right hip fracture. 09/02/17 - Hospitalist team is covering for Dr. Davalos. Surgery planned today. Low-dose metoprolol was given this morning for elevated bp without noted improvement -- may need to initiate antiHTN medication Start bowel regimen; consult PT/OT. LANI chacon FOZIA. PLAN - 09/03/17 (POD #2) Hospitalist team is covering for Dr. Davalos. Patient denies any pain and is progressing well clinically. Continue pain control per Dr. Womack. Continue to encourage therapies to improve functional abilities and strength. Blood pressure remains elevated with systolic pressures in 140-150's. Clinical exam reveals irregularly irregular heart rate and rhythm. Patient admits to history of arrhythmia with palpitations. 24 hours halter monitor worn 3 years ago which "didn't capture anything". 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 Will obtain EKG now and place patient on telemetry for close cardiac monitoring. Will obtain TSH now for further evaluation. Continue metoprolol 2.5mg Q6H IV PRN hypertension/tachycardia. May consider initiation of home antihypertensive upon discharge. Continue bowel motivation given patient's use of opioid pain control. Chacon catheter removed today. Monitor closely for signs of urinary retention and bladder scan as indicated. Nursing reports concern of decreased urinary output following discontinuation of IVF yesterday. Continue to monitor I&O closely and encourage oral intake. Will recheck CBC and BMP in AM to monitor blood counts, electrolytes and renal function.
[2017-09-05] MEDS: POLYETHYL GLYCOL 3350 17gm PACKET PO SCH (10:40)
[2017-09-05] MEDS: NAPROXEN 220 MG TABLET PO SCH (10:42)
[2017-09-05] MEDS: LISINOPRIL 10 MG TABLET PO SCH (10:43)
[2017-09-05] MEDS: DOCUSATE SODIUM 100 MG CAPSULE PO SCH (10:45)
[2017-09-05] MEDS: ACETAMINOPHEN 325 MG TABLET PO SCH (10:45)
[2017-09-05] MEDS: SENNA + DOCUSATE TABLET PO SCH (11:45)
[2017-09-05 12:18] VITALS: BP 160/82; PULSE 77; RESP 16; TEMP 96.7; O2SAT 97
--- NOTE | 2017-09-05 17:39 | Discharge Summary ---
FINAL DIAGNOSES 1. Hypertension, newly diagnosed, on treatment. 2. Subcapital fracture of right hip. 3. Status post total hip replacement by Dr. Womack. 4. Leukocytosis. 5. Hyperglycemia. ADMITTING, ATTENDING PHYSICIAN Dr. Davalos/Hospitalist. CONSULTING PHYSICIAN Dr. Womack PROCEDURE The patient had a total right hip replacement by Dr. Womack on 09/01/2017. REASON FOR ADMISSION The patient is a 67-year-old female who came to the office on the day of admission, 09/01/2017 with chief complaint of right hip pain. She was falling a couple of days earlier. She is having difficulty walking and standing. In the office x-ray of the right hip did show a fracture of the head of the right femur. For this reason the patient was admitted to [facility] via ambulance. PHYSICAL EXAM She was uncomfortable due to pain. She did have tenderness involving the right hip. X-ray did show a closed posttraumatic subcapital right femoral neck fracture. This was mildly displaced as well. LABORATORY WBC was 16,000. Hemoglobin was 13.3. Chemistry was normal including a creatinine of 0.6, BUN 27, glucose 124. Liver function tests were normal. UA was positive for 2+ ketones. HOSPITAL COURSE The patient was admitted to the surgical floor at [facility] under the care of Dr. Santana Davalos. Consultation was made to Orthopedics. The patient subsequently was taken to surgery on 09/02/2017. The patient had right total hip replacement by Dr. Womack. Postoperative course was unremarkable. The patient developed hyperglycemia which was treated and resolved. In addition, the patient also was treated for newly diagnosed hypertension. She said she had high blood pressure at home prior to this but she has not been diagnosed with that before. The hospitalist provided coverage in my behalf from 09/02/2017 until 09/05/2017. I did resume patient's care today. She was medically stable enough to be dismissed to home today. LABORATORY (07/04/2018) Potassium 3.7, sodium 141, creatinine 0.6, glucose 108. Hemoglobin 11.4, WBC 10.6. The patient was medically stable enough to dismiss to home today. Therefore, she was dismissed home today. DISCHARGE MEDICATIONS 1. Benadryl 25 mg p.o. q.6h. p.r.n. itching. 2. Lisinopril 10 mg one tablet daily - #30 prescribed. 3. Roxicodone 5 mg to 15 mg p.o. q.3h. p.r.n. pain. 4. MiraLAX 17 g daily p.r.n. 5. Senna Plus one tablet p.o. b.i.d. 6. Colace 100 mg p.o. b.i.d. 7. DVT prophylactic regimen has been decided by Dr. Womack. FOLLOWUP The patient will follow up with Deandre Barcenas PA-C, through Dr. Womack on 2017. The patient will follow with me in the office one to two weeks from now. We will spend some time talking about her newly diagnosed hypertension. MICHAEL
== END 2017-09-05 14:30 | disposition home or self-care (01) | DRG 470 ==
LOC: SRG 12:35
PROVIDERS: ADMIT Family Medicine; ATTEND Family Medicine